=== PATIENT | female | born 1980 | race Caucasian/White ===

== ENCOUNTER 2019-01-05 05:29 | Day surgery (SDC) | payer OTHER ==
[2019-01-05] MEDS ORDERED: BUPIVACAINE 0.25% (MPF) 30 ML INJ (06:56)
[2019-01-05] MEDS ORDERED: DESFLURANE 15 MIN (07:00)
[2019-01-05] MEDS ORDERED: METOCLOPRAMIDE 10 MG INJ (07:00)
[2019-01-05] MEDS ORDERED: SUGAMMADEX SODIUM 200 MG/2 ML VIAL IV (07:00)
[2019-01-05] MEDS ORDERED: CEFAZOLIN 1 GM INJ (07:00)
[2019-01-05] MEDS ORDERED: ROCURONIUM 50 MG INJ (07:17)
[2019-01-05] MEDS ORDERED: MIDAZOLAM 1 MG/ML 2 ML INJ (07:17)
[2019-01-05] MEDS ORDERED: FENTAnyl 50 MCG/ML VIAL (07:17)
[2019-01-05] MEDS ORDERED: PROPOFOL 20 ML (07:17)
[2019-01-05] MEDS ORDERED: LIDOCAINE 2% (SDV) 5 ML INJ (07:17)
[2019-01-05] MEDS ORDERED: ONDANSETRON 4 MG INJ (07:18)
[2019-01-05] MEDS ORDERED: SUCCINYLCHOLINE CHLORIDE 100 MG/5 ML SYG IV (07:18)
[2019-01-05] MEDS ORDERED: ROPIVACAINE 0.5 % 30 ML VIAL (07:23)
[2019-01-05] MEDS: CEFAZOLIN 2 GM/50 ML (PMX) 50 ML IVPB (07:30)
[2019-01-05] MEDS ORDERED: SOD CHLORIDE 0.9% 1,000 ML IV (07:30)
[2019-01-05] MEDS ORDERED: LABETALOL HCL 20MG INJ IV (08:00)
[2019-01-05] MEDS ORDERED: LEVALBUTEROL (NEB) 1.25 MG/0.5 ML AMP HHN (08:00)
[2019-01-05] MEDS ORDERED: HYDROmorphONE 1 MG/5 ML IV SYRINGE IV (08:00)
[2019-01-05] MEDS ORDERED: hydrALAzine 20 MG INJ IV (08:00)
[2019-01-05] MEDS ORDERED: KETOROLAC 30 MG INJ IV (08:00)
[2019-01-05] MEDS ORDERED: FENTAnyl 50 MCG/ML VIAL IV (08:00)
[2019-01-05] MEDS ORDERED: DIPHENHYDRAMINE 50 MG INJ IV (08:00)
[2019-01-05] MEDS: MEPERIDINE 25 MG INJ IV (08:59)
[2019-01-05] MEDS: ONDANSETRON 4 MG INJ IV (09:01)
[2019-01-05] MEDS: HYDROmorphONE 1 MG/5 ML IV SYRINGE IV ×2 (09:03→09:10)
[2019-01-05] MEDS: HYDROCODONE/APAP (5/325) TAB PO (09:15)
[2019-01-05] MEDS: FENTAnyl 50 MCG/ML VIAL IV (09:30)
== END 2019-01-05 10:10 | disposition home or self-care (01) ==
LOC: SDS 05:29
DX: K81.1 Chronic cholecystitis (principal)
CPT/HCPCS: 47562; 88304